=== PATIENT | female | born 1965 | race Asian ===

== ENCOUNTER 2023-04-15 10:54 | Outpatient (AMB) | payer OTHER, SELFPAY ==
--- NOTE | 2023-04-15 11:00 | HO.SPINEOV ---
Intake Intake Visit Reasons: low back pain Intake Note: Ms. Mo is here today c/o low back pain. 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 She is a pleasant 57-year-old female who comes in today with a chief complaint of low back pain that she describes as severe in nature. She states it has been ongoing for the past 20 years, and began right around the time she was diagnosed with scoliosis. She reports that her scoliosis has worsened over the course of the last 20 years and is now to the point where her back pain is interfering with her activities of daily living and her employment. 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 She also has trouble doing things that bring her xin in life. She reports associated symptoms of weakness and a feeling of numbness in her bilateral thighs (does not affect the groin / perineum). She reports that she was previously put on an NSAID medication for her pain, however she stopped taking it due to concerns that it may affect her kidneys. She is tried at home exercise/stretching regimen which only increased her pain. She is now at the point where she feels something must be done as she could not continue to live life like this. PMH: Hysterectomy. Social hx: Patient does not smoke, reports no substance use Medications: Estradiol cream. Allergies: NKDA. Physical exam: The patient has 5/5 strength in her upper and lower extremities. Her reflexes are somewhat hyperreflexive (3+). The rest of her reflexes are 2+ intact. She has decreased sensation over her bilateral thighs, worse on the anterior / lateral aspect of her thighs. The rest of her sensation is grossly intact. The patient ambulates well and rises from a seated position without difficulty. (-) Hdz's, (-) clonus, (-) straight leg raise bilaterally. Imaging review: MRI completed at [facility] shows diffuse spondylosis of the lumbar spine, with severe levoscoliosis and bilateral foraminal stenosis from L1-S1 at varying severity. Impression: Eli is a pleasant 57-year-old female who comes in today with a chief complaint of 20+ years of longstanding low back pain. She states that she did not have scoliosis as a child but was diagnosed much later after he started to have pain as an adult. She reports that over the course of the last year has worsened significantly and has gotten to the point where she has difficulty with standing and lifting. No reported issues with walking. We discussed the possibility of a surgical scoliosis correction which would likely involve a multilevel fusion. She did not seem like she is in a place at this time where she is ready to consider lumbar fusion. I did explain to her that her symptoms may continue to worsen in severity if this goes untreated, as she is already beginning to have weakness and numbness in her bilateral thighs. She is understanding of this, and reports she will reach out to our office for follow-up appointment if she wishes to pursue a surgical intervention to solve her problem after she has time to think about her current situation Thank you for allowing us to care for your patient. The total time spent with this visit with this patient was 45 minutes reviewing history, physical exam, MRI imaging review, and implementation of treatment plan or further diagnostic testing James Regalado MD,PhD [facility] Coding Level of Care Code New Pt Level 4 (21697) Diagnoses Levoscoliosis M41.80
== END 2023-04-15 11:50 | disposition home or self-care (01) ==
PROVIDERS: Referring Provider Physician Assistant; Visit Provider Physician Assistant
DX: M41.80 Other forms of scoliosis, site unspecified (principal)
CPT/HCPCS: 99204

== ENCOUNTER → 2023-04-15 10:54 | Outpatient (BNVA) | payer OTHER, SELFPAY | PROVIDERS: Visit Provider Physician Assistant | DX: M41.80 Other forms of scoliosis, site unspecified (principal) | CPT/HCPCS: 99202 ==

== ENCOUNTER 2023-04-22 14:35 | Outpatient (AMB) | payer OTHER, SELFPAY ==
--- NOTE | 2023-04-22 14:48 | HO.SPINEOV ---
Intake Intake Visit Reasons: discuss possible surgery Intake Note: Ms. Mo is here today to discuss possible surgery. Event Coordinator Marketing And Sales Required: Yes Event Coordinator Marketing And Sales Name: Tablet Allergies No Known Allergies Allergy (Verified 04/15/23 11:02) Assessment & Plan Assessment & Plan (1) Levoscoliosis: Code(s): M41.80 - Other forms of scoliosis, site unspecified Plan: Eli is a pleasant 57-year-old female who comes in today to discuss potential interventions/options for her severe lumbar scoliosis. We extensively discussed the possibility of facet injections to of reduced joint inflammation and potentially provide her with relief of pain. She states that her constipation continues to get worse, and she was recently evaluated by GI who has been working to adjust her medications in response to her progressive constipation. She reports that they believe her constipation may be resulting from her progressive scoliosis. For this reason she is concerned, and seemed very interested in pursuing a surgical intervention for her problem. I extensively discussed with her that we could correct her scoliosis, however would not be able to do so here at [facility] as we do not have the ICU or trauma resources / facilities that a lot of the larger institutions have. We would need access to these things as a secondary precaution in order to safely correct scoliosis of this nature. We would like to start by having her obtain facet injections by our colleagues and pain management. If she responds well to this it may be a temporizing measure for her for the foreseeable future. If she does not we are amenable to referring her to Dr. Bryan at [facility] in [place] to further discuss scoliosis correction. Total amount of time spent in this visit was 20 minutes in discussion of symptoms, MRI imaging results and subsequent plan of care James Regalado MD,PhD [facility] Orders: Orders XR lumbar spine 4V min Today M41.80 - Other forms of scoliosis, site unspecified Referrals Pain Management Referral M41.80 - Other forms of scoliosis, site unspecified Coding Level of Care Code Est Pt Level 3 (91488) Diagnoses Levoscoliosis M41.80
== END 2023-04-22 15:34 | disposition home or self-care (01) ==
PROVIDERS: Visit Provider Physician Assistant
DX: M41.80 Other forms of scoliosis, site unspecified (principal)
CPT/HCPCS: 99213

== ENCOUNTER 2023-04-22 14:35 | Outpatient (REF) | payer OTHER, SELFPAY ==
--- NOTE | ~2023-04-22 | XR_ITS ---
EXAMINATION: XR LUMBOSACRAL SPINE WITH FLEXION AND EXTENSION CLINICAL INFORMATION: Other forms of scoliosis, site unspecified COMPARISON: None available. TECHNIQUE: AP, lateral, lateral flexion and extension views of the lumbar spine were obtained FINDINGS: There is marked curve of the lumbar spine, convex left. On the lateral view, there appears to be fusion of the L1 and L2 vertebral bodies. The height of L3, L4 and L5 is well-maintained. There is multilevel marked disc space narrowing at L2-L3, L3-L4 and L5-S1. There is multilevel degenerative facet joint disease. There is question of L5 spondylolysis. There is no change in alignment with flexion and extension. There is partial calcification of the abdominal aorta without evidence of aneurysmal dilatation. XR/XR lumbar spine 4V min IMPRESSION: 1. Marked curve of the lumbar spine, convex left. 2. Multilevel degenerative disc disease and degenerative facet joint disease. 3. Question of L5 spondylolysis. CT scan or MRI scan could be obtained for further evaluation.
== END 2023-04-22 14:36 | disposition home or self-care (01) ==
LOC: HO.HOSX 14:35
PROVIDERS: Visit Provider Physician Assistant
DX: M41.80 Other forms of scoliosis, site unspecified (principal)
CPT/HCPCS: 72110; 99212